=== PATIENT | female | born 1985 | race Caucasian/White ===

== ENCOUNTER 2017-09-16 10:29 | Emergency (ER) | payer OTHER ==
[~2017-09-16] VITALS: Ht 157.5 cm; Wt 61.4 kg
[~2017-09-16 10:29] MED LIST: NOCURR
[2017-09-16 11:02] LABS: GLUCOSE,POINT OF CARE 109 MG/DL (70-110)
[2017-09-16] MEDS ORDERED: *NON-FORMULARY MED [ENTER DRUG, DOSE, FREQ IN COMMENTS] CLINICAL ONE (11:15)
[2017-09-16] MEDS ORDERED: [UNRECOGNIZED DRUG - OTHER] OU ONE (11:30)
[2017-09-16] MEDS ORDERED: SODIUM CHLORIDE 0.9% 1,000 ML IV ONE (12:00)
[2017-09-16] MEDS ORDERED: ONDANSETRON HCL 4 MG/2 ML VIAL IVP ONE (12:00)
[2017-09-16 13:55] VITALS: BP 116/75
== END 2017-09-16 14:14 | disposition home or self-care (01) ==
LOC: EMS 10:33
DX: H10.9 Unspecified conjunctivitis (principal); R05 Cough; J34.89 Other specified disorders of nose and nasal sinuses; G43.909 Migraine, unspecified, not intractable, without status migrainosus
CPT/HCPCS: 82948; 82962; 96361; 96374; 99284; J2405; J7030; Z7610